=== PATIENT | male | born 1935 | race Caucasian/White ===

== ENCOUNTER 2023-09-17 12:10 | Observation (INO) | payer MEDICARE, BC ==
[2023-09-17 12:34] LABS: #Eosinphils 0.2 10x3/uL (0.0-0.5); #Monocytes 0.6 10x3/uL (0.0-1.1); #Neutrophils 6.4 10x3/uL (1.5-8.4); %Basophils 0.3 % (0.0-2.0); %Eosinophils 2.7 % (0.0-6.0); %Lymphocytes 19.1 % (18.0-47.0); %Monocytes 6.5 % (0.0-10.0); Hematocrit 38.8 % (38.8-50.0); Hemoglobin 12.2 g/dL (13.5-17.5); Mean Corpuscular HGB CONC 31.4 g/dL (32.0-36.0); Mean Corpuscular Hemoglobin 27.6 pg (27.0-33.0); Mean Corpuscular Volume 87.8 fl (81.2-95.1); Mean Platelet Volume 10.1 fl (7.4-10.4); Platelet Count 267 10x3/uL (150-450); RBC Distribution Width 14.6 % (11.5-14.5); Red Blood Cell (RBC) Count 4.42 10x6/uL (4.32-5.72)
[2023-09-17 13:02] LABS: ALT (SGPT) 52 U/L (8-55); AST (SGOT) 149 U/L (5-34); Albumin 3.4 g/dL (3.4-4.8); Alkaline Phosphatase 113 U/L (40-110); Anion Gap 10 mmol/L (10-20); BUN (Urea Nitrogen) 16 mg/dL (8.4-25.7); Bilirubin, Total 0.6 mg/dL (0.2-1.2); Calc. Creatinine Clearance 0 mL/min (70-130); Calcium 7.8 mg/dL (7.8-10.44); Carbon Dioxide 23 mmol/L (23-31); Chloride 106 mmol/L (98-107); Estimated GFR 56; Globulin 2.6 g/dL (2.4-3.5); Glucose 181 mg/dL (83-110); Lipase 32 U/L (8-78); Potassium 4.2 mmol/L (3.5-5.1); Sodium 135 mmol/L (136-145)
[2023-09-17 13:08] LABS: Troponin I Less than 0.010 ng/mL (< 0.028)
[2023-09-17] MEDS ORDERED: Ondansetron ODT 4 MG TAB PO PRN (14:27)
[2023-09-17] MEDS ORDERED: Ondansetron PF 4 MG/2 ML Vial IVP PRN (14:27)
[2023-09-17] MEDS ORDERED: Acetaminophen 325 MG TAB PO PRN (14:27)
[2023-09-17 15:10] LABS: Magnesium 1.6 mg/dL (1.6-2.6)
[2023-09-17] MEDS: Enoxaparin 40 MG (0.4 mL) SYRINGE SC SCH (16:24)
[2023-09-17 17:03] LABS: Troponin I Less than 0.010 ng/mL (< 0.028)
[2023-09-17 18:08] VITALS: BMI 23.1
[2023-09-17 19:25] LABS: Troponin I Less than 0.010 ng/mL (< 0.028)
[2023-09-18 04:59] LABS: #Eosinphils 0.4 10x3/uL (0.0-0.5); #Monocytes 0.8 10x3/uL (0.0-1.1); #Neutrophils 5.2 10x3/uL (1.5-8.4); %Basophils 0.4 % (0.0-2.0); %Eosinophils 4.5 % (0.0-6.0); %Lymphocytes 22.9 % (18.0-47.0); %Monocytes 9.7 % (0.0-10.0); %Neutrophils 62.3 % (40.0-75.0); Hematocrit 39.5 % (38.8-50.0); Hemoglobin 12.4 g/dL (13.5-17.5); Mean Corpuscular HGB CONC 31.4 g/dL (32.0-36.0); Mean Corpuscular Hemoglobin 27.3 pg (27.0-33.0); Mean Corpuscular Volume 86.8 fl (81.2-95.1); Mean Platelet Volume 10.2 fl (7.4-10.4); Platelet Count 249 10x3/uL (150-450); RBC Distribution Width 14.6 % (11.5-14.5); Red Blood Cell (RBC) Count 4.55 10x6/uL (4.32-5.72); White Blood Cell (WBC) Count 8.3 10x3/uL (3.5-10.5)
[2023-09-18 05:03] LABS: Anion Gap 10 mmol/L (10-20); BUN (Urea Nitrogen) 14 mg/dL (8.4-25.7); Calc. Creatinine Clearance 39 mL/min (70-130); Carbon Dioxide 24 mmol/L (23-31); Chloride 108 mmol/L (98-107); Potassium 3.9 mmol/L (3.5-5.1); Sodium 138 mmol/L (136-145)
[2023-09-18 05:04] LABS: Calcium 8.5 mg/dL (7.8-10.44); Estimated GFR 63; Glucose 84 mg/dL (83-110)
[2023-09-18] MEDS: Aspirin Chewable 81 MG TAB PO SCH (08:21)
[2023-09-18 08:58] VITALS: BP 162/73; TEMP 98.3
[2023-09-18] MEDS ORDERED: Rosuvastatin 20 MG TAB PO SCH (21:00)
== END 2023-09-18 11:12 | disposition home or self-care (01) ==
LOC: CSHERS 12:10 → CSHERHOLD 14:16 → CSHTELE 16:00
PROVIDERS: ADMIT Internal Medicine; ATTEND Hospitalist
PROC: B246ZZZ Ultrasonography of Right and Left Heart (ICD-10-PCS; principal; 2023-09-17)
DX: R07.89 Other chest pain (principal); I08.2 Rheumatic disorders of both aortic and tricuspid valves; J44.9 Chronic obstructive pulmonary disease, unspecified; I25.10 Atherosclerotic heart disease of native coronary artery without angina pectoris; I10 Essential (primary) hypertension; E78.5 Hyperlipidemia, unspecified; K21.9 Gastro-esophageal reflux disease without esophagitis; Z95.5 Presence of coronary angioplasty implant and graft; Z90.49 Acquired absence of other specified parts of digestive tract; Z90.79 Acquired absence of other genital organ(s); Z87.891 Personal history of nicotine dependence; Z88.8 Allergy status to other drugs, medicaments and biological substances; Z79.82 Long term (current) use of aspirin; Z79.899 Other long term (current) drug therapy
CPT/HCPCS: 36415; 71045; 80048; 80053; 83690; 83735; 84443; 84484; 85025; 93005; 93306; 94760; 94762; G0378